=== PATIENT | male | born 1975 | race Caucasian/White ===

== ENCOUNTER 2021-06-10 18:19 | Observation (INO) | payer SELFPAY ==
--- NOTE | ~2021-06-10 | CT_ITS ---
EXAMINATION: CT abdomen pelvis w con DATE: 06/10/2021 19:52 INDICATION: Upper abdominal pain. Nausea and diarrhea. TECHNIQUE: Computed tomography (CT) of the abdomen and pelvis was performed with 100 mL Omnipaque 350 intravenous contrast. Automated exposure control and iterative reconstruction technique were employe d. The dose-length product was 353.90 mGy-cm. COMPARISON: None. FINDINGS: The visualized portions of the lung bases are clear without pneumonia or pleural effusion. The heart size is normal. No pericardial effusion. There is diffuse hepatic steatosis. The gallbladde r, spleen, adrenal glands, and kidneys are normal. There is fat stranding around the head of the panc reas and second and third portions of the duodenum. There are no dilated loops of bowel. The appendix is normal. There are no pathologically enlarged lymph nodes. There is no free intraperitoneal fluid. There is mild thoracolumbar spondylosis. IMPRESSION: 1. Fat stranding around the head of the pancreas and second and third portions of the duodenum, consi stent with acute interstitial pancreatitis and/or duodenitis. Reviewed, dictated and finalized at location A. IMPRESSION: 1. Fat stranding around the head of the pancreas and second and third portions of the duodenum, consistent with acute interstitial pancreatitis and/or duodeni tis.
--- NOTE | 2021-06-10 18:38 | ECG_ITS ---
Measurements Intervals [place] Rate: 114 P: 77 MA: 132 QRS: 77 QRSD: 75 T: 57 QT: 294 QTc: 405 Interpretive Statements SINUS TACHYCARDIA ABNORMAL ECG Electronically Signed On 06-10-2021 20:10:46 CDT by Carlos Alberto Diana D.O.
[2021-06-10 18:44] VITALS: BP 124/100; PULSE 90; RESP 20; TEMP 37; O2SAT 94
--- NOTE | 2021-06-10 18:51 | PC.NURSE ---
patient lives near [facility], drove past and came here
[2021-06-10 19:07] LABS: Basophils Absolute Auto 0.05 K/mm3 (0.00-0.10); Basophils Percent Auto 0.4 % (0.0-1.0); Eosinophils Absolute Auto 0.04 K/mm3 (0.02-0.50); Eosinophils Percent Auto 0.4 % (1.0-6.0); Hematocrit 42.6 % (40.0-54.0); Hemoglobin 15.5 g/dL (14.0-18.0); Immature Granulocyte Absolute 0.08 K/mm3 (0.00-0.00); Immature Granulocyte Percent A 0.7 % (0.0-0.0); Lymphocytes Absolute Auto 0.95 K/mm3 (1.10-4.50); Lymphocytes Percent Auto 8.5 % (18.0-42.0); Mean Corpuscular HGB Conc 36.4 g/dL (32.0-36.0); Mean Corpuscular Hemoglobin 33.2 pg (27.0-31.0); Mean Corpuscular Volume 91.2 fL (78.0-102.0); Mean Platelet Volume 9.4 fl (8.7-11.0); Monocytes Percent Auto 7.1 % (2.0-11.0); Neutrophils Absolute Auto 9.3 K/mm3 (1.7-7.2); Neutrophils Percent Auto 82.9 % (50.0-70.0); Platelet Count Result 181 K/mm3 (150-420); Red Blood Count 4.67 M/mm3 (4.70-6.10); White Blood Count 11.2 K/mm3 (4.8-10.8)
[2021-06-10 19:24] LABS: Alanine Aminotransferase 29 U/L (16-63); Albumin Level 3.6 g/dL (3.4-5.0); Alkaline Phosphatase 107 U/L (46-116); Anion Gap 12 mmol/L (8-16); Aspartate Amino Transferase 48 U/L (15-37); Bilirubin,Total 1.4 mg/dL (0.00-1.00); Blood Urea Nitrogen 5 mg/dL (7-18); Calcium 8.9 mg/dL (8.5-10.1); Carbon Dioxide 26 mmol/L (21-32); Chloride 95 mmol/L (98-108); Estimated CRCL calculation 84 ml/min; Estimated Glomerular Filt Rate > 60; Glucose 341 mg/dL (70-99); Lactic Acid Reflex 1.7 mmol/L (0.4-2.0); Lipase 1052 U/L (73-393); Osmolality Calculated 286 mOsm/kg (285-295); Potassium 3.5 mmol/L (3.5-5.1); Sodium 133 mmol/L (136-145); Total Protein 7.3 g/dL (6.4-8.2); Troponin I 5.6 ng/L (0.00-60.4)
[2021-06-10 19:25] LABS: Ethanol < 3 mg/dL (0-6)
[2021-06-10 19:25] LABS: Add Urine Microscopic? YES; Appearance Urine Clear (Clear); Bilirubin Urine Negative (Negative); Blood Urine Negative (Negative); Color Urine Yellow (Yellow); Glucose Urine UA 3+ (Negative); Ketones Urine 2+ (Negative); Leukocyte Esterase Ur Negative (Negative); Nitrate Urine Negative (Negative); Protein Urine Trace (Negative); pH Urine 6.5 (5.0-8.0)
[2021-06-10] MEDS: SODIUM CHLORIDE 0.9% IV 1,000 ML 999 ML IV CONT (19:25)
[2021-06-10 19:30] LABS: Bacteria Urine Trace /hpf; RBC Urine 0-2 /hpf (0-2); WBC Urine 0-3 /hpf (0-3)
[2021-06-10 19:31] LABS: Amphetamine Screen Urine Negative (Negative); Barbiturate Screen Urine Negative (Negative); Benzodiazepines Screen Urine Negative (Negative); Cannabinoid Screen Urine Positive (Negative); Cocaine Screen Urine Negative (Negative); Methadone Screen Urine Negative (Negative); Opiate Screen Urine Negative (Negative); Phencyclidine Screen Urine Negative (Negative)
[2021-06-10] MEDS: ONDANSETRON INJ 4 MG/2 ML VIAL IV PUSH (19:52)
[2021-06-10] MEDS: MORPHINE SULFATE (*CRX) 4 MG/ML INJ IV PUSH (19:53)
[2021-06-10 20:00] VITALS: BP 140/88; PULSE 90; RESP 19
--- NOTE | 2021-06-10 20:04 | ED.GENADULT ---
HPI - General Adult General Chief complaint: Unspecified Stated complaint: Chest pain Source: patient Mode of arrival: ambulatory Limitations: no limitations History of Present Illness HPI narrative: this is a 46-year-old gentleman that presents with 2 to 3 day history of abdominal pain generalized localizing to the left upper quadrant, has some nausea with currently no vomiting no fever chills rates his pain about an 8/10, the patient has a history of alcohol abuse and cannabis, smoking history. Currently there is some nausea with no vomiting no flank pain does have few episodes of loose stools. With no chest pain no shortness of breath Onset (ago): day(s) Location: abdomen Radiation: non-radiation Severity: moderate Severity scale (1-10): 8 Quality: aching and constant Pain Consistency: constant Relieving factors: none Related Data Home Medications Medication Instructions Recorded Confirmed No Home Medications 06/10/21 06/10/21 Allergies Allergy/AdvReac Type Severity Reaction Status Date / Time No Known Allergies Allergy Verified 06/10/21 18:49 Review of Systems Review of Systems: All systems reviewed & are unremarkable except as noted in HPI and below [facility] Past Medical History Medical History Alcohol abuse Exam Const: General: cooperative, healthy appearing and comfortable HENMT: Head: normal to inspection Ears: hearing grossly normal bilaterally Face and sinus: normal facial exam Eyes: General: appearance normal, both eyes and all related structures Conjunctivae: conjunctivae normal Sclera: sclerae normal Chest: Chest palpation & inspection: normal inspection of the chest and normal palpation of entire chest wall Resp: Effort & Inspection: normal respiratory effort and able to speak in complete sentences Cardio: Jugular venous distension: no JVD Palpation: normal PMI Rate: regular rate Rhythm: regular rhythm Heart sounds: S1 normal heart sound present and S2 normal heart sound present GI: Inspection: normal to inspection GI Palp: Yes abdominal tenderness : General: Yes no CVA tenderness Urinary Catheter: Urinary Catheter: patent and draining Back/Spine/Pelvis: Back: no CVA tenderness Cervical Spine: normal cervical lordosis and pain with cervical ROM Skin: General skin exam: normal color and no rashes or lesions noted Neuro: General: oriented to person, oriented to place and oriented to time Extrem: General: normal to inspection and full ROM Course Course Emergency Course: patient after reassessment abdominal pain is improved patient labs were reviewed with patient along with CT scan and will admit the patient with pancreatitis. Vital Signs Vital signs: Vital Signs Temperature 37.0 C 06/10/21 18:44 Pulse Rate 90 06/10/21 18:44 Respiratory Rate 20 06/10/21 18:44 Blood Pressure 124/100 H 06/10/21 18:44 Pulse Oximetry 94 06/10/21 18:44 Temperature 37.0 C 06/10/21 18:44 Pulse Rate 90 06/10/21 20:00 Respiratory Rate 19 06/10/21 20:00 Blood Pressure 140/88 06/10/21 20:00 Pulse Oximetry 94 06/10/21 18:44 Medical Decision Making Vital Signs Vital Signs: Vital Signs Temperature 37.0 C 06/10/21 18:44 Pulse Rate 90 06/10/21 18:44 Respiratory Rate 20 06/10/21 18:44 Blood Pressure 124/100 H 06/10/21 18:44 Pulse Oximetry 94 06/10/21 18:44 Temperature 37.0 C 06/10/21 18:44 Pulse Rate 90 06/10/21 20:00 Respiratory Rate 19 06/10/21 20:00 Blood Pressure 140/88 06/10/21 20:00 Pulse Oximetry 94 06/10/21 18:44 Lab Data Result diagrams: 06/10/21 19:02 06/10/21 19:02 Labs: Lab Results 06/10/21 06/10/21 06/10/21 Range/Units 19:02 19:02 19:02 WBC 11.2 H (4.8-10.8) K/mm3 RBC 4.67 L (4.70-6.10) M/mm3 Hgb 15.5 (14.0-18.0) g/dL Hct 42.6 (40.0-54.0) % MCV 91.2 (78.0-102.0) fL MCH 33.2 H (27.0-31.0) pg MCHC 36.4 H (32.0-36.0) g/dL RDW
[2021-06-10 20:10] VITALS: PULSE 90; RESP 18; O2SAT 98
[2021-06-10 21:15] VITALS: BP 156/96; PULSE 90; RESP 18; TEMP 36.6; O2SAT 98
--- NOTE | 2021-06-10 21:15 | ADMGEN ---
This patient, Dani Gar, was admitted to 2nd Floor Room 209-1. Patient oriented to hospital policies and general routines including ID bracelet, bed and alarms, visiting hours, pain management, procedures, bathroom and other care routines, personal items, smoking policy, room service/diet, and visiting hours. Information on how to activate the Rapid Response Team has been discussed. Patient are encouraged to report perceived risks to care and to ask questions if they do not understand what they are told or what they should do. Patient A&Ox3. Respirations even and unlabored. Denies SOB. Abdomen soft and non-distended with c/o tenderness upon palpation to bilateral upper quads. No edema noted. Patient's appearance is unkept. Patient reports chest and abdominal pain rated @ 9 while patient is lying in bed and talking to nurse, saying how comfortable the bed is compared to the one in ER. Patient asking for pain med and Ativan. Nurse gave Ativan and let patient know what time he can get the pain medicine. No distress noted. Call light in reach.
[2021-06-10 21:19] VITALS: BP 140/90; PULSE 99; RESP 20; TEMP 36.6; O2SAT 97
[2021-06-10] MEDS: SODIUM CHLORIDE 0.9% IV 1,000 ML 100 ML IV CONT (21:19)
[2021-06-10] MEDS: LORazepam INJ (*CRX) 2 MG/ML VIAL 1 MG IV PUSH (21:26)
[2021-06-10 21:44] VITALS: BMI 23.3
[2021-06-11] VITALS (7 sets, daily range): BP systolic 121–179; BP diastolic 86–99; PULSE 93–100; RESP 16–20; TEMP 36.1–37.1; O2SAT 97–98
[2021-06-11] MEDS: MORPHINE SULFATE (*CRX) 2 MG/ML INJ IV PUSH ×2 (00:42→08:51)
--- NOTE | 2021-06-11 03:30 | PC.NURSE ---
Patient now telling nurse that his stomach pain now feels like one big hunger javi and asked when he can eat something because he hadn't eaten since breakfast the previous morning. Nurse explained to patient why he is NPO. Patient verbalized understanding.
--- NOTE | 2021-06-11 04:45 | PC.NURSE ---
Patient appears to be sleeping by the rise and fall of his chest. Respirations even and unlabored. IV NS infusing without difficulty. No distress noted. Call light in reach.
[2021-06-11 05:16] LABS: Basophils Absolute Auto 0.04 K/mm3 (0.00-0.10); Basophils Percent Auto 0.4 % (0.0-1.0); Eosinophils Absolute Auto 0.07 K/mm3 (0.02-0.50); Eosinophils Percent Auto 0.8 % (1.0-6.0); Hematocrit 37.5 % (40.0-54.0); Hemoglobin 13.2 g/dL (14.0-18.0); Immature Granulocyte Absolute 0.06 K/mm3 (0.00-0.00); Immature Granulocyte Percent A 0.6 % (0.0-0.0); Lymphocytes Absolute Auto 1.44 K/mm3 (1.10-4.50); Lymphocytes Percent Auto 15.5 % (18.0-42.0); Mean Corpuscular HGB Conc 35.2 g/dL (32.0-36.0); Mean Corpuscular Hemoglobin 32.7 pg (27.0-31.0); Mean Corpuscular Volume 92.8 fL (78.0-102.0); Mean Platelet Volume 9.5 fl (8.7-11.0); Monocytes Absolute Auto 0.73 K/mm3 (0.10-0.90); Monocytes Percent Auto 7.8 % (2.0-11.0); Neutrophils Percent Auto 74.9 % (50.0-70.0); Platelet Count Result 155 K/mm3 (150-420); Red Blood Count 4.04 M/mm3 (4.70-6.10); Red Cell Distribution Width 12.8 % (11.6-14.4); White Blood Count 9.3 K/mm3 (4.8-10.8)
[2021-06-11 05:32] LABS: Alanine Aminotransferase 24 U/L (16-63); Albumin Level 2.9 g/dL (3.4-5.0); Alkaline Phosphatase 82 U/L (46-116); Anion Gap 11 mmol/L (8-16); Aspartate Amino Transferase 26 U/L (15-37); Bilirubin,Total 1.4 mg/dL (0.00-1.00); Blood Urea Nitrogen 5 mg/dL (7-18); Calcium 7.9 mg/dL (8.5-10.1); Carbon Dioxide 25 mmol/L (21-32); Chloride 99 mmol/L (98-108); Estimated CRCL calculation 113 ml/min; Estimated Glomerular Filt Rate > 60; Glucose 244 mg/dL (70-99); Osmolality Calculated 285 mOsm/kg (285-295); Potassium 3.4 mmol/L (3.5-5.1); Sodium 135 mmol/L (136-145)
[2021-06-11 05:54] LABS: Lipase 1453 U/L (73-393)
[2021-06-11] MEDS: SODIUM CHLORIDE 0.9% IV 1,000 ML 100 ML IV CONT (07:42)
--- NOTE | 2021-06-11 07:58 | PC.NURSE ---
Patient resting in bed at this time. C/o hunger w/no other c/o pain or discomfort. Patient has voiced displeasure about not being allowed to eat. Nurse informed patient of NPO status d/t condition and labs. Patient has used vulgar language voicing his opinion and has mentioned to nurse about leaving on his own if he is not going to get fed.
[2021-06-11] MEDS: ENOXAPARIN 30 MG/0.3 ML SYRINGE SUB-Q (08:34)
[2021-06-11] MEDS: NICOTINE (*PBKC) 21 MG PATCH 1 PATCH TRANSDERM (08:36)
[2021-06-11] MEDS: ONDANSETRON INJ 4 MG/2 ML VIAL IV PUSH (10:44)
[2021-06-11 11:32] LABS: Glucose Point of Care 215 mg/dl (65-105)
[2021-06-11] MEDS: DEXTROSE 5%/0.9% SOD CHL 1,000 ML 100 ML IV CONT ×2 (11:54→22:12)
[2021-06-11] MEDS: HYDROcodone/acetaminophen (*CRX) 7.5-325 MG TABLET 1 TAB PO ×3 (11:54→23:55)
[2021-06-11 12:41] LABS: Lipase 1148 U/L (73-393)
--- NOTE | 2021-06-11 13:11 | PC.NURSE ---
Patient resting in bed alert and awake w/no c/o pain or discomfort. NPO status continues as NS discontinued and Dextrose started. AC/HS AccuCheck initiated d/t elevated blood sugars and family Hx of diabetes.
[2021-06-11 16:28] LABS: Glucose Point of Care 285 mg/dl (65-105)
--- NOTE | 2021-06-11 16:38 | PM.IMHP ---
H&P: HPI History of Present Illness Date/Time: 06/11/21 16:38 Dani Gar is a 46 year old male who comes to the hospital after 3 days of epigastric pain. Patient states that the pain was a 10/10 and today after some treatment is a 7 to 8/10. Patient admits to history of alcohol abuse stating he used to drink 0.5 gal of liquor a day and is down to 1/2 a pt daily. Patient states this is the 1st time he has had pancreatitis. He has been nauseated without vomiting prior to arrival at the hospital. He was kept NPO. His lipase has decreased as of noon today giving a chance to have him start clear liquids. Patient also states that he smokes approximately 1 pack of cigarettes per day. 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 Is worth noting his fingers both left and right hand index and middle finger tips are brown with tar from smoking. patient states he has tried AA in the past which did not work for him I offered him other avenues for rehabilitation however at this time he declined. Patient denies chest pain shortness of breath change in bowel or bladder function other than the abdominal pain noted no musculoskeletal issues and denies any tremors hallucinations both auditory and visual. Patient does not have past medical history other than advising he has had alcohol abuse for a long time. <DEBBIE Adhikari - Last Filed: 06/11/21 17:03> Chief Complaint: abdominal pain <DEBBIE Adhikari - Last Filed: 06/11/21 17:03> Review of Systems Review of Systems: All systems reviewed & are unremarkable except as noted in HPI and below <DEBBIE Adhikari - Last Filed: 06/11/21 17:03> [facility] Past Medical History Medical History: Medical History (Updated 06/11/21 @ 16:49 by DEBBIE Adhikari) Alcohol abuse Hypertension <DEBBIE Adhikari - Last Filed: 06/11/21 17:03> Surgical History Surgical History: Surgical History (Updated 06/11/21 @ 16:49 by DEBBIE Adhikari) Hx of tonsillectomy <DEBBIE Adhikari - Last Filed: 06/11/21 17:03> Family History Family History: Family History Mother Diabetes mellitus CAD (coronary artery disease) Father Diabetes mellitus CAD (coronary artery disease) Grandparent Diabetes mellitus <DEBBIE Adhikari - Last Filed: 06/11/21 17:03> Social History Social History: Social History Smoking packs per day: 1 Smoking cigarettes per day: 20.0 Years smoked: 36 Smoking pack-years: 36.00 Smoking status: Current every day smoker Tobacco type: cigarettes Second hand tobacco smoke exposure: Yes Alcohol intake: current Drinks per week: 8 Substance use: current Substance use type: marijuana Spiritual care concerns: No <DEBBIE Adhikari - Last Filed: 06/11/21 17:03> Meds Home Medications and Allergies Home medications: Home Medications Medication Instructions Recorded Confirmed Type No Home Medications 06/10/21 06/10/21 History <DEBBIE Adhikari - Last Filed: 06/11/21 17:03> Allergies/Adverse reactions: Allergies Allergy/AdvReac Type Severity Reaction Status Date / Time No Known Allergies Allergy Verified 06/10/21 18:49 <DEBBIE Adhikari - Last Filed: 06/11/21 17:03> Vital Signs Vital Signs - 24 hr 06/10/21 18:44 06/10/21 20:00 06/10/21 20:10 Temperature 98.6 F Pulse Rate 90 90 90 Respiratory Rate 20 19 18 Blood Pressure 124/100 H 140/88 Pulse Oximetry 94 98 06/10/21 21:15 06/10/21 21:19 06/11/21 00:00 Temperature 97.8 F 98 F 98.4 F Pulse Rate 90 99 100 Respiratory Rate 18 20 18 Blood Pressure 156/96 H 140/90 158/94 H Pulse Oximetry 98 97 98 06/11/21 03:57 06/11/21 07:26 06/11/21 12:00 Temperature 98.2 F 98.8 F 98.5 F Pulse Rate 98 100 95 Respiratory Rate 20 18 16 Blood
[2021-06-12 00:40] LABS: Glucose Point of Care 273 mg/dl (65-105)
[2021-06-12 04:00] VITALS: BP 137/99; PULSE 96; RESP 20; TEMP 36.4; O2SAT 98
[2021-06-12 05:20] LABS: Hemoglobin 12.4 g/dL (14.0-18.0); Immature Platelet Fraction Pct 3.3 % (1.0-7.0); Mean Corpuscular HGB Conc 35.4 g/dL (32.0-36.0); Mean Corpuscular Hemoglobin 33.2 pg (27.0-31.0); Mean Corpuscular Volume 93.6 fL (78.0-102.0); Mean Platelet Volume 9.8 fl (8.7-11.0); Platelet Count Result 144 K/mm3 (150-420); Red Blood Count 3.74 M/mm3 (4.70-6.10); Red Cell Distribution Width 12.8 % (11.6-14.4); White Blood Count 6.1 K/mm3 (4.8-10.8)
[2021-06-12 05:32] LABS: Anion Gap 6 mmol/L (8-16); Blood Urea Nitrogen 2 mg/dL (7-18); Calcium 7.7 mg/dL (8.5-10.1); Carbon Dioxide 29 mmol/L (21-32); Chloride 101 mmol/L (98-108); Estimated CRCL calculation 120 ml/min; Estimated Glomerular Filt Rate > 60; Glucose 246 mg/dL (70-99); Lipase 844 U/L (73-393); Osmolality Calculated 286 mOsm/kg (285-295); Potassium 3.2 mmol/L (3.5-5.1); Sodium 136 mmol/L (136-145)
[2021-06-12] MEDS: HYDROcodone/acetaminophen (*CRX) 7.5-325 MG TABLET 1 TAB PO (06:00)
[2021-06-12 07:49] LABS: Glucose Point of Care 228 mg/dl (65-105)
[2021-06-12 07:53] VITALS: BP 141/95; PULSE 93; RESP 14; TEMP 36.3; O2SAT 96
[2021-06-12] MEDS: POTASSIUM CHLORIDE 20 MEQ TABLET 40 MEQ PO (08:00)
[2021-06-12] MEDS: NICOTINE (*PBKC) 21 MG PATCH 1 PATCH TRANSDERM (09:19)
[2021-06-12] MEDS: lisinopriL 10 MG TABLET PO (09:20)
[2021-06-12] MEDS: DEXTROSE 5%/0.9% SOD CHL 1,000 ML 100 ML IV CONT (09:23)
--- NOTE | 2021-06-12 09:51 | PM.IMPN ---
Progress Note: A&P Assessment and Plan (1) Alcohol abuse: Code(s): F10.10 - Alcohol abuse, uncomplicated Status: Acute Assessment and Plan: Admits he has been consuming EtOH for a long time, states he has been tapering his EtOH consumption, offered rehabilitation but denied this, No tremors, hallucinations, has Nicotine patch, Ativan PRN, Zofran 06/12/2021 No reports of alcohol withdrawal, no tremors, no hallucination, not agitated, appears comfortable this morning (2) Acute pancreatitis: Code(s): K85.90 - Acute pancreatitis without necrosis or infection, unspecified Status: Acute Assessment and Plan: Pain control with [place] Q6H and Morphine for breakthrough pain, Pt states the [place] is effective and almost took his pain completely away, advanced diet to clear liquids, Lipase as noon today 1148 which is down from 1453. 06/12/2021 lipase level decreased to 844, patient denies eye pain, patient states pain management is good, advance diet to full liquid, if tolerates will advance to regular diet for this evening and tomorrow morning if that is tolerated high probability patient will be discharged Subjective Date/time seen: 06/12/21 09:51 Dani Gar was laying in bed this morning appearing comfortable. Patient states he is not having any pain this morning and that he was able to tolerate his clear liquid diet yesterday. Patient is willing to advance to full liquids. We discussed this and if tolerated we will advance diet for dinner and breakfast tomorrow. If patient is able to tolerate food this evening and tomorrow morning there is a good probability of him being discharged tomorrow. Discussed with patient pain management. Patient says his pain is well controlled and we discussed decreasing his [place] to 5/325 and making it as needed every 6 hours to which she replied that is fine. Patient has not shown any signs of withdrawal since his stay. Patient denies chest pain shortness of breath tremors hallucinations body and joint aches fevers and chills. Review of Systems Review of Systems: All systems reviewed & are unremarkable except as noted in HPI and below Exam Const: General: cooperative, comfortable, no acute distress, alert, awake and Physically active Nutritional Appearance: average body habitus Resp: Effort & Inspection: normal respiratory effort Auscultation: clear to auscultation bilaterally Cardio: Jugular venous distension: no JVD Rate: regular rate Heart sounds: S1 normal heart sound present and S2 normal heart sound present GI: GI Palp: Yes Soft to palpation and No Tenderness to palpation present (GI) Auscultation: normal bowel sounds Skin: General skin exam: normal color and dry skin Neuro: General: oriented to person, oriented to place and oriented to time Cranial nerves: Yes CN's II-XII intact bilaterally (grossly intact) Cognition (Neuro): normal cognition Speech: normal speech Psych: Mental Status: mental status grossly normal Speech and movement: Normal speech and movement present Affect: normal affect Attitude: cooperative Thought process: Normal thought process present Objective Data Vital Signs Vital Signs: Vital Signs - 24 hr 06/11/21 12:00 06/11/21 16:00 06/11/21 20:00 Temperature 98.5 F 97.7 F 97 F L Pulse Rate 95 93 93 Respiratory Rate 16 18 20 Blood Pressure 121/95 H 126/95 H 122/86 Pulse Oximetry 97 97 97 06/11/21 23:51 06/12/21 04:00 06/12/21 07:53 Temperature 97.5 F L 97.5 F L 97.3 F L Pulse Rate 96 96 93 Respiratory Rate 20 20 14 Blood Pressure 137/99 H 137/99 H 141/95 H Pulse Oximetry 98 98 96 Intake/Output Intake/Output: Intake & Output 06/09/21 06/10/21 06/11/21 06/12/21 23:59 23:59 23:59 23:59 Intake Total 2755 1900 Output Total 300 Balance 2455 1900 Meds/Results Medications: Active Medications Generic Name Dose Route Start Last Admin Trade Name Freq PRN Reason Stop Dose Admin Hydrocodone Bitart/Acetaminophen
--- NOTE | 2021-06-12 11:45 | PM.DS ---
DS: Admitting Diagnosis Admitting Diagnosis Acute Pancreatitis, Alcohol Abuse <Kulwant DonnyDEBBIE Dan - Last Filed: 06/12/21 12:08> DS: Discharge Diagnosis Discharge Diagnosis (1) Alcohol abuse: Code(s): F10.10 - Alcohol abuse, uncomplicated <Kulwant Huizar DEBBIE Ugarte - Last Filed: 06/12/21 12:08> Status: Acute <Kulwant HinesDEBBIE Dan - Last Filed: 06/12/21 12:08> Assessment and Plan: Admits he has been consuming EtOH for a long time, states he has been tapering his EtOH consumption, offered rehabilitation but denied this, No tremors, hallucinations, has Nicotine patch, Ativan PRN, Zofran 06/12/2021 No reports of alcohol withdrawal, no tremors, no hallucination, not agitated, appears comfortable this morning, Pt is willing to try Valtrexone <DEBBIE Adhikari - Last Filed: 06/12/21 12:08> (2) Acute pancreatitis: Code(s): K85.90 - Acute pancreatitis without necrosis or infection, unspecified <Kulwant DonnyDEBBIE Dan - Last Filed: 06/12/21 12:08> Status: Acute <Kulwant DonnyDEBBIE Dan - Last Filed: 06/12/21 12:08> Assessment and Plan: Pain control with [place] Q6H and Morphine for breakthrough pain, Pt states the [place] is effective and almost took his pain completely away, advanced diet to clear liquids, Lipase as noon today 1148 which is down from 1453. 06/12/2021 lipase level decreased to 844, patient denies eye pain, patient states pain management is good, advance diet to full liquid, if tolerates will advance to regular diet for this evening and tomorrow morning if that is tolerated high probability patient will be discharged <DEBBIE Adhikari - Last Filed: 06/12/21 12:08> (3) Hypertension: Code(s): I10 - Essential (primary) hypertension <DEBBIE Adhikair - Last Filed: 06/12/21 12:08> Status: Inactive <DEBBIE Adhikari - Last Filed: 06/12/21 12:08> Assessment and Plan: BP elevated this AM added Lisinopril, Pt to f/u with PCP <Kulwant DonnyDEBBIE Dan - Last Filed: 06/12/21 12:08> DS: Summary Hospital Course Hospital Course: Pt progressed well. Lipase levels reduced. Abdominal pain resolved. Tolerating PO fluids and food. <Kulwant DonnyDEBBIE Dan - Last Filed: 06/12/21 12:08> Time Spent with Patient Time attestation: Total time spent providing and/or coordinating discharge services: < 30 minutes <Kulwant DonnyDEBBIE Dan - Last Filed: 06/12/21 12:08> Exam Const: General: cooperative, comfortable, no acute distress, alert, awake and Physically active <Kulwant HinesDEBBIE Dan - Last Filed: 06/12/21 12:08> Nutritional Appearance: average body habitus <Kulwant HinesDEBBIE Dan - Last Filed: 06/12/21 12:08> Orientation/consciousness: oriented to person, oriented to place and oriented to time <Kulwant HinesDEBBIE Dan - Last Filed: 06/12/21 12:08> Resp: Effort & Inspection: normal respiratory effort <Kulwant HinesDEBBIE Dan - Last Filed: 06/12/21 12:08> Auscultation: clear to auscultation bilaterally <Kulwant HinesDEBBIE Dan - Last Filed: 06/12/21 12:08> Cardio: Jugular venous distension: no JVD <Kulwant HinesDEBBIE Dan - Last Filed: 06/12/21 12:08> Rate: regular rate <Kulwant HinesDEBBIE Dan - Last Filed: 06/12/21 12:08> Heart sounds: S1 normal heart sound present and S2 normal heart sound present <Kulwant DonnyDEBBIE Dan - Last Filed: 06/12/21 12:08> GI: Auscultation: normal bowel sounds and Hypoactive bowel sounds present <Kulwant DonnyDEBBIE Dan - Last Filed: 06/12/21 12:08> Skin: General skin exam: normal color and dry skin <DEBBIE Adhikari - Last Filed: 06/12/21 12:08> Neuro: General: oriented to person, oriented to place, oriented to time, tone normal and moves all extremities <DEBBIE Adhikari - Last Filed: 06/12/21 12:08> Cranial nerves: Yes CN's II-XII intact bilaterally (grossly intact) and Yes Normal hearing present <DEBBIE Adhikari - Last Filed: 06/12/21 12:08> [facility]
[2021-06-12 11:48] LABS: Glucose Point of Care 355 mg/dl (65-105)
[2021-06-12 12:00] VITALS: BP 140/85; PULSE 87; RESP 16; TEMP 36.9; O2SAT 98
--- NOTE | 2021-06-12 14:06 | PC.NURSE ---
Pt discharged at 1305.Discharge instructions given to pt. Pt verbalized understanding of discharge instructions. All personal belongings sent with patient. Pt stable at this time. RN took pt via WC to the family car.
--- NOTE | 2021-06-21 19:22 | PC.NURSE ---
06/11/2021 NS started 1924, ended 2024
== END 2021-06-12 13:05 | disposition home or self-care (01) ==
LOC: CHSED 20:17 → CHS2ND 20:18
PROVIDERS: Nurse Practitioner Family; Admitting Provider Emergency Medicine; Emergency Provider Emergency Medicine; Visit Provider Emergency Medicine
DX: K85.90 Acute pancreatitis without necrosis or infection, unspecified (principal); F10.10 Alcohol abuse, uncomplicated; F12.90 Cannabis use, unspecified, uncomplicated; F17.210 Nicotine dependence, cigarettes, uncomplicated; I10 Essential (primary) hypertension
CPT/HCPCS: 36415; 74177; 80048; 80053; 80307; 81001; 82948; 83605; 83690; 84484; 85025; 85027; 85055; 93005; 96361; 96365; 96366; 96372; 96374; 96375; 96376; 99285; A9270; G0378; G0379; J1650; J2060; J2270; J2405; J7030; J7042; Q9967